=== PATIENT | male | born 1960 | race Caucasian/White ===

== ENCOUNTER 2016-08-18 13:41 | Emergency (ER) | payer MEDICARE, OTHER ==
[~2016-08-18 13:41] MED LIST: ALTA5 PO; APRES25 PO; ASAB PO; B1100 PO; BENICAR40 PO; BETA240 PO; BETAP120 PO; BETAPACE80 PO; BRINT10T PO; BUM2 PO; C1 PO; C5 PO; CALCIUM; CALTRA600D PO; CENTRUM TAB1 TAB PO; COQ-10200 MG PO; COUMADIN10 MG PO; CYANO1000T PO; DENIES HOME MEDS; DIL4TAB PO; DRONED400 PO; ELIQUIS 5 MG TAB5 MG PO; FISH-EPA1000 MG PO; HYT5 PO; IRON PO; JANTOVEN1 MG PO; JANTOVEN10 MG PO; JANTOVEN7.5 MG PO; KDUR20 PO; KLOR-CON M2020 MEQ PO; L40 PO; LOP25 PO; LORTAB10 PO; MAGNESIUM PO; MAGOX4 PO; MULTIPLE VIT PO; MULTIVITAMI1 PO; Mag-Ox PO; PERCOCET1 TA5 PO; PLAVIX PO; POT CHLORIDE 20 MEQ PO; PRAVAC; PRAVAC PO; PREV30 PO; PRIN2.5 PO; PRIN20 PO; PRIN5 PO; PROMEGA PO; PROTEIN DRINK; PROTONIX PO; PROZAC PO; PROZAC40 MG PO; PYR200 PO; QC HYDROCORT1 % EX; SORINE80 MG PO; TOPXL100 PO; TOPXL50 PO; VITAMIN B-12; VITAMIN B-121000 MC1 SL; VITAMIN B-122500 MCG SL; VYTORIN 10/20 T1 TAB PO
[2016-08-20] MEDS ORDERED: NORCO1 TA1 PO (12:43)
== END 2016-08-18 18:05 | disposition left against medical advice (07) ==
LOC: ER 13:41
DX: Z53.21 Procedure and treatment not carried out due to patient leaving prior to being seen by health care provider (principal)
CPT/HCPCS: 80048; 83735; 84484; 85025; 85610; 85730; 93005